=== PATIENT | male | born 1980 | race Two or more races ===

== ENCOUNTER 2019-04-27 12:19 | Emergency (ER) | payer OTHER ==
[~2019-04-27] VITALS: Ht 177.8 cm; Wt 81.6 kg
[~2019-04-27 12:19] MED LIST: CEFADROXIL500 MG PO; IBUPROFEN800 MG PO; KETO10TA2 PO
== END 2019-04-27 13:54 | disposition home or self-care (01) ==
LOC: ER 12:19
DX: S76.811A Strain of other specified muscles, fascia and tendons at thigh level, right thigh, initial encounter (principal); X50.0XXA Overexertion from strenuous movement or load, initial encounter; Y93.64 Activity, baseball; Y92.89 Other specified places as the place of occurrence of the external cause; Y99.8 Other external cause status

== ENCOUNTER 2025-01-24 13:18 | Emergency (ER) | payer OTHER ==
[~2025-01-24] VITALS: Ht 177.8 cm; Wt 81.6 kg
[2025-01-24 14:04] VITALS: BP 150/81; O2SAT 100
[2025-01-24] MEDS ORDERED: KETOROLAC TROMETHAMINE 30 MG VIAL IM ONE (14:30)
[2025-01-24] MEDS ORDERED: KETOROLAC TROMETHAMINE 30 MG VIAL ONE (14:38)
== END 2025-01-24 18:02 | disposition home or self-care (01) ==
LOC: ER 14:05
DX: S93.401A Sprain of unspecified ligament of right ankle, initial encounter (principal); X58.XXXA Exposure to other specified factors, initial encounter; Y93.66 Activity, soccer; Y92.89 Other specified places as the place of occurrence of the external cause; Y99.9 Unspecified external cause status; Z91.013 Allergy to seafood

== ENCOUNTER 2025-07-27 10:06 | Emergency (ER) | payer OTHER ==
[~2025-07-27] VITALS: Ht 177.8 cm; Wt 81.6 kg
[2025-07-27 12:46] LABS: BASO % 0.3 % (0.1-1.2); EOS # 0.10 (0.04-0.54); EOS % 1.4 % (0.7-7.0); LYMPH # 0.59 (1.18-3.74); LYMPH % 8.3 % (19.3-53.1); MEAN PLATELET VOLUME 12.40 fl (9.4-12.4); MONO # 0.79 (0.24-0.82); MONO % 11.1 % (4.7-12.5); NEUT # 5.63 (1.56-6.13); NEUT % 78.8 % (34.0-71.1); RED CELL DISTRIBUTION WIDTH 12.9 % (11.6-14.4)
[2025-07-27 12:53] LABS: ERYTHROCYTE SEDIMENTATION RATE 11 mm/hr (0-15)
[2025-07-27 13:32] LABS: ALT/SGPT 22.0 U/L (12-78); AST/SGOT 17.0 U/L (15-37); BILIRUBIN TOTAL 0.83 mg/dL (0.3-1.2); BUN CREA RATIO 14.0 (7.0-25.0); CREATININE SERUM 1.02 mg/dL (0.70-1.30); GFR 78.98; GLOBULINA 3.8 G/DL (2.4-3.5); GLUCOSE FASTING 102.0 mg/dL (65-100); OSMOLALITY SERUM 280.0 MOSM/KG (275-295)
[2025-07-27 14:03] LABS: COVID-19 AG NEGATIVE (NEGATIVE)
[2025-07-27] MEDS ORDERED: ACETAMINOPHEN 500 MG GEL..CAP PO STA (14:07)
[2025-07-27 14:35] LABS: URINE APPEARANCE Clear; URINE BILIRRUBIN Negative (NEGATIVE); URINE BLOOD Negative; URINE COLOR Yellow; URINE GLUCOSE Negative (NEGATIVE); URINE KETONE Trace (NEGATIVE); URINE LEUKOCYTE Negative; URINE NITRATE Negative; URINE PROTEIN Trace (NEGATIVE); URINE UROBILINOGEN 0.2 E.U./dl
[2025-07-27 14:39] LABS: URINE RBC 11.2 uL (0.0-20.8)
[2025-07-27 14:52] LABS: URINE BACTERIA 1.1 uL (0.0-1933); URINE CAST 0.73 uL (0.0-1.40); URINE EPITHELIAL CELLS 1.2 uL (0.0-38.8); URINE WBC 0.9 uL (0.0-23.2)
[2025-07-27 14:53] LABS: URINE CRYSTALS MANY /HPF; URINE MUCUS HEAVY
[2025-07-27] MEDS ORDERED: ACETAMINOPHEN 500 MG GEL..CAP PO ONE (15:04)
[2025-07-27] MEDS ORDERED: OSEL75CA PO (18:28)
== END 2025-07-27 19:07 | disposition home or self-care (01) ==
LOC: ER 10:07
PROVIDERS: Physician Assistant Medical
DX: J10.1 Influenza due to other identified influenza virus with other respiratory manifestations (principal); B34.9 Viral infection, unspecified; Z20.822 Contact with and (suspected) exposure to COVID-19; Z91.013 Allergy to seafood